=== PATIENT | female | born 1940 | race Two or more races ===

== ENCOUNTER 2024-06-18 15:25 | Inpatient (IN) | payer OTHER ==
[~2024-06-18] VITALS: Ht 160 cm; Wt 45.4 kg
[~2024-06-18 15:25] MED LIST: IMODIUM A-D2 MG PO; PEPCID40 MG PO; ZOFRAN4 MG PO
[2024-06-18] MEDS ORDERED: 0.9 % SODIUM CHLORIDE 1,000 ML IV SCH (16:45)
[2024-06-18 17:25] LABS: HEMATOCRIT 37.8 % (36.0-45.00); HEMOGLOBIN 12.5 g/dL (12.0-15.00); MEAN CELL VOLUME 84.9 fL (80.00-100.00); MEAN CORPUSCULAR HEMOGLOBIN 27.9 pg (27.00-32.0); MEAN CORPUSCULAR HGB CONC 32.9 g/dl (32.0-36.0); PLATELET COUNT 423 K/uL (150-450); RED BLOOD COUNT 4.46 M/uL (4.00-6.00)
[2024-06-18 17:34] LABS: RED CELL DISTRIBUTION WIDTH 18.1 % (11.5-14.5)
[2024-06-18 17:47] LABS: ALBUMIN 2.2 gm/dL (3.4-5.0); BILIRUBIN TOTAL 1.56 mg/dL (0.3-1.2); CALCIUM 9.3 mg/dL (8.5-10.1); CREATININE SERUM 0.65 mg/dL (0.55-1.02); GFR 87.26; GLOBULINA 3.6 G/DL (2.4-3.5); POTASSIUM 3.84 mEq/L (3.5-5.1); TOTAL PROTEIN 5.8 gm/dL (6.4-8.2)
[2024-06-18 18:53] VITALS: BP 157/92
[2024-06-18] MEDS ORDERED: ATORVASTATIN CALCIUM 40 MG TABLET PO SCH (21:23)
[2024-06-18] MEDS ORDERED: FAMOTIDINE/PF 20 MG in 0.9 % SODIUM CHLORIDE 8 ML IV PUSH SCH (21:23)
[2024-06-18] MEDS ORDERED: AMINO ACIDS/PROTEIN HYDROLYS 30 ML BLIST.PACK PO SCH (21:25)
[2024-06-18] MEDS ORDERED: SODIUM CHLORIDE 0.45 % 1,000 ML IV SCH (21:30)
[2024-06-18] MEDS ORDERED: ONDANSETRON HCL 4 MG in 0.9 % SODIUM CHLORIDE 50 ML IV PRN (21:30)
[2024-06-18] MEDS ORDERED: MECLIZINE HCL 25 MG TABLET PO ONE (21:30)
[2024-06-18] MEDS ORDERED: ACETAMINOPHEN 500 MG GEL..CAP PO PRN (21:30)
[2024-06-18 22:22] LABS: INR 1.28; PARTIAL THROMBOPLASTIN TIME 29.5 SECONDS (22.0-34.0); PROTHROMBIN TIME 13.7 SECONDS (9.0-11.5)
[2024-06-19] VITALS (10 sets, daily range): BP systolic 137–161; BP diastolic 76–83; O2SAT 96–99
[2024-06-19] MEDS ORDERED: LOSARTAN POTASSIUM 50 MG TABLET PO SCH (09:00)
[2024-06-19] MEDS ORDERED: SERTRALINE HCL 25 MG TABLET PO NR (12:06)
[2024-06-19] MEDS ORDERED: VITAMIN B COMPLEX/LYSINE 1 ML ML PO SCH (13:00)
[2024-06-19 15:45] LABS: PH,URINE 5.5 (5.0-8.0); URINE APPEARANCE Clear; URINE BACTERIA 17.6 uL (0.0-1933); URINE BILIRRUBIN Moderate (NEGATIVE); URINE BLOOD Negative; URINE CAST 5.03 uL (0.0-1.40); URINE COLOR Dark Yellow; URINE EPITHELIAL CELLS 11.7 uL (0.0-38.8); URINE GLUCOSE Negative (NEGATIVE); URINE KETONE Trace (NEGATIVE); URINE LEUKOCYTE Negative; URINE NITRATE Negative; URINE PROTEIN Trace (NEGATIVE); URINE RBC 6.8 uL (0.0-20.8); URINE WBC 5.5 uL (0.0-23.2)
[2024-06-20] VITALS (9 sets, daily range): BP systolic 132–167; BP diastolic 79–90; O2SAT 97–100
[2024-06-20] MEDS ORDERED: SERTRALINE HCL 25 MG TABLET PO SCH (09:00)
[2024-06-20] MEDS ORDERED: PANTOPRAZOLE SODIUM 40 MG TABLET.DR PO SCH (17:00)
[2024-06-21] VITALS (9 sets, daily range): BP systolic 120–124; BP diastolic 60–77; O2SAT 97–99
[2024-06-22] VITALS (8 sets, daily range): BP systolic 113–141; BP diastolic 64–79; O2SAT 96–98
[2024-06-22] MEDS ORDERED: SUCRALFATE 1 G TABLET PO STA (07:45)
[2024-06-22 14:44] LABS: HEMATOCRIT 36.2 % (36.0-45.00); HEMOGLOBIN 11.9 g/dL (12.0-15.00); MEAN CELL VOLUME 82.4 fL (80.00-100.00); MEAN CORPUSCULAR HEMOGLOBIN 27.2 pg (27.00-32.0); PLATELET COUNT 313 K/uL (150-450); RED BLOOD COUNT 4.39 M/uL (4.00-6.00); RED CELL DISTRIBUTION WIDTH 18.8 % (11.5-14.5)
[2024-06-22 15:19] LABS: ALBUMIN 1.8 gm/dL (3.4-5.0); BILIRUBIN TOTAL 1.99 mg/dL (0.3-1.2); CALCIUM 8.2 mg/dL (8.5-10.1); CREATININE SERUM 0.95 mg/dL (0.55-1.02); GFR 56.32; GLOBULINA 3.1 G/DL (2.4-3.5); POTASSIUM 4.26 mEq/L (3.5-5.1); TOTAL PROTEIN 4.9 gm/dL (6.4-8.2)
[2024-06-23] VITALS (9 sets, daily range): BP systolic 113–144; BP diastolic 64–85; O2SAT 96–98
[2024-06-23] MEDS ORDERED: PIPERACILLIN/TAZOBACTAM SODIUM 3.375 GM in DEXTROSE 5 % IN WATER 100 ML IV SCH (08:00)
[2024-06-23] MEDS ORDERED: SUCRALFATE 1 G TABLET PO SCH (12:00)
[2024-06-24] VITALS (9 sets, daily range): BP systolic 110–117; BP diastolic 53–72; O2SAT 96–99
[2024-06-24] MEDS ORDERED: MEGESTROL ACETATE 400 MG/10 ML BLIST PACK PO SCH (12:10)
[2024-06-24] MEDS ORDERED: LACTOBACILLUS ACIDOPHILUS 1 CAP CAP PO SCH (17:00)
[2024-06-25] VITALS (9 sets, daily range): BP systolic 100–117; BP diastolic 53–88; O2SAT 96–99
[2024-06-25] MEDS ORDERED: TRAMADOL HCL 50 MG TABLET PO SCH (09:00)
[2024-06-25] MEDS ORDERED: MORPHINE SULFATE 2 MG/ML CARTRIDGE IV PRN (12:15)
[2024-06-26] VITALS (12 sets, daily range): BP systolic 77–109; BP diastolic 44–84; O2SAT 94–99
[2024-06-26 12:34] LABS: HEMATOCRIT 33.2 % (36.0-45.00); HEMOGLOBIN 10.9 g/dL (12.0-15.00); MEAN CELL VOLUME 81.4 fL (80.00-100.00); MEAN CORPUSCULAR HEMOGLOBIN 26.7 pg (27.00-32.0); MEAN CORPUSCULAR HGB CONC 32.8 g/dl (32.0-36.0); PLATELET COUNT 404 K/uL (150-450); RED BLOOD COUNT 4.07 M/uL (4.00-6.00); RED CELL DISTRIBUTION WIDTH 19.2 % (11.5-14.5)
[2024-06-26 13:54] LABS: ALBUMIN 1.3 gm/dL (3.4-5.0); BILIRUBIN TOTAL 2.28 mg/dL (0.3-1.2); CREATININE SERUM 2.65 mg/dL (0.55-1.02); GFR 17.24; GLOBULINA 3.5 G/DL (2.4-3.5); TOTAL PROTEIN 4.8 gm/dL (6.4-8.2)
[2024-06-26 14:44] LABS: CALCIUM 6.7 mg/dL (8.5-10.1); POTASSIUM 5.79 mEq/L (3.5-5.1)
[2024-06-26 15:07] LABS: CA 15-3 39.2 U/mL (0.0-25.0)
[2024-06-26] MEDS ORDERED: AMINO ACIDS 4.25 %/DEXTROSE 5% 1,000 ML PERIFERAL SCH (17:38)
[2024-06-26 18:48] LABS: ABG PH 7.345 (7.35-7.45); ABG PO2 75.3 mmHg (80-100); ABG pCO2 21.8 mmHg (35-45); BASE EXCESS -11.7 mmol/l; BICARBONATE 11.6 mmol/l (23-25); SaO2 93.4 %; Tco2 12.3 mmol/l
[2024-06-26 18:52] LABS: allen test SATISFACTORY; o2 24 %; puncture site RADIAL RIGHT
[2024-06-26] MEDS ORDERED: NOREPINEPHRINE BITARTRATE 8 MG in DEXTROSE 5 % IN WATER 250 ML IV SCH (19:00)
[2024-06-26 20:04] LABS: CHOL HDL RATIO 11.1 (0-5.0); CREATININE SERUM 2.71 mg/dL (0.55-1.02); GFR 16.8; POTASSIUM 5.46 mEq/L (3.5-5.1)
[2024-06-26 20:18] LABS: CALCIUM 5.9 mg/dL (8.5-10.1)
[2024-06-26] MEDS ORDERED: 0.9 % SODIUM CHLORIDE 1,000 ML IV SCH (22:15)
[2024-06-27] VITALS (9 sets, daily range): BP systolic 98–106; BP diastolic 65–72; O2SAT 92–96
[2024-06-27 11:11] LABS: CA 27.29 53.8 U/mL (0.0-38.6)
[2024-06-27] MEDS ORDERED: AA 4.25%/CALCIUM/LYTES/DEX 10% 1,000 ML CENTRAL SCH (17:00)
[2024-06-27] MEDS ORDERED: MEROPENEM 500 MG/VIAL VIAL IV SCH (21:00)
[2024-06-27 23:30] LABS: CHOL HDL RATIO 8.8 (0-5.0); CREATININE SERUM 3.13 mg/dL (0.55-1.02); GFR 14.23; POTASSIUM 5.33 mEq/L (3.5-5.1)
[2024-06-27 23:51] LABS: CALCIUM 6.2 mg/dL (8.5-10.1)
[2024-06-28] VITALS (9 sets, daily range): BP systolic 100–104; BP diastolic 55–62; O2SAT 93–97
[2024-06-28] MEDS ORDERED: ACETAMINOPHEN 500 MG GEL..CAP PO PRN (07:15)
[2024-06-28 11:00] LABS: URINE APPEARANCE Turbid; URINE BILIRRUBIN Small (NEGATIVE); URINE BLOOD Trace; URINE COLOR Dark Yellow; URINE KETONE Trace (NEGATIVE); URINE LEUKOCYTE Trace; URINE NITRATE Negative
[2024-06-28 11:04] LABS: URINE BACTERIA 9034.5 uL (0.0-1933); URINE CAST 6.07 uL (0.0-1.40); URINE EPITHELIAL CELLS 148.2 uL (0.0-38.8); URINE RBC 55.9 uL (0.0-20.8); URINE WBC 134.1 uL (0.0-23.2)
[2024-06-28 11:23] LABS: URINE CRYSTALS FEW /HPF; URINE GLUCOSE 100 MG/DL (NEGATIVE); URINE PROTEIN 100 (NEGATIVE)
[2024-06-28] MEDS ORDERED: MORPHINE SULFATE 2 MG/ML CARTRIDGE IV PRN (13:30)
[2024-06-29] VITALS (8 sets, daily range): BP systolic 102–132; BP diastolic 67–75; O2SAT 93–97
[2024-06-29] MEDS ORDERED: MEROPENEM 500 MG/VIAL VIAL IV SCH (09:00)
[2024-06-30] VITALS (9 sets, daily range): BP systolic 98–119; BP diastolic 70–75; O2SAT 92–97
[2024-06-30] MEDS ORDERED: MORPHINE SULFATE 2 MG/ML CARTRIDGE IV PRN (23:45)
[2024-07-01] VITALS (9 sets, daily range): BP systolic 96–110; BP diastolic 62–73; O2SAT 90–97
[2024-07-02] VITALS (7 sets, daily range): BP systolic 92–104; BP diastolic 70–76; O2SAT 83–93
[2024-07-02] MEDS ORDERED: MORPHINE SULFATE 2 MG/ML CARTRIDGE IV SCH (12:00)
== END 2024-07-02 17:30 | disposition expired | DRG 871 ==
LOC: ER 15:25 → MEDJ 21:48
PROVIDERS: General Practice; Internal Medicine; Internal Medicine Hematology & Oncology; Internal Medicine Infectious Disease; ADMIT Internal Medicine; ATTEND Internal Medicine
PROC: BW28ZZZ Computerized Tomography (CT Scan) of Head (ICD-10-PCS; principal; 2024-06-18)
PROC: B345ZZZ Ultrasonography of Bilateral Common Carotid Arteries (ICD-10-PCS; 2024-06-18)
PROC: B246ZZZ Ultrasonography of Right and Left Heart (ICD-10-PCS; 2024-06-18)
PROC: 4A12X4Z Monitoring of Cardiac Electrical Activity, External Approach (ICD-10-PCS; 2024-06-19)
PROC: BW21ZZZ Computerized Tomography (CT Scan) of Abdomen and Pelvis (ICD-10-PCS; 2024-06-22)
PROC: 02HV33Z Insertion of Infusion Device into Superior Vena Cava, Percutaneous Approach (ICD-10-PCS; 2024-06-27)
DX: A41.9 Sepsis, unspecified organism (principal); J18.9 Pneumonia, unspecified organism; R65.21 Severe sepsis with septic shock; C78.00 Secondary malignant neoplasm of unspecified lung; C78.7 Secondary malignant neoplasm of liver and intrahepatic bile duct; J90 Pleural effusion, not elsewhere classified; G45.8 Other transient cerebral ischemic attacks and related syndromes; N39.0 Urinary tract infection, site not specified; E44.0 Moderate protein-calorie malnutrition; R55 Syncope and collapse; D72.828 Other elevated white blood cell count; Z66 Do not resuscitate; K21.9 Gastro-esophageal reflux disease without esophagitis; R41.0 Disorientation, unspecified; I12.9 Hypertensive chronic kidney disease with stage 1 through stage 4 chronic kidney disease, or unspecified chronic kidney disease; N18.30 Chronic kidney disease, stage 3 unspecified